=== PATIENT | male | born 1955 | race Caucasian/White ===

== ENCOUNTER → 2018-12-07 11:51 | Outpatient (CLI) | payer BC, SELFPAY ==
[2018-12-07 11:41] VITALS: BMI 28.5
--- NOTE | 2018-12-07 11:53 | RAD_ITS ---
STUDY: X-RAY - LEFT KNEE REASON FOR EXAM: Male, 63 years old. Left knee pain TECHNIQUE: 4 view(s) of the knee. Weight-bearing COMPARISON: None. FINDINGS: Normal visualized distal femur. Normal visualized proximal tibia and fibula. Normal proximal tibiofibular articulation. There is mild degenerative arthrosis of the medial femorotibial compartment. There is mild degenerative arthrosis of the lateral femorotibial compartment. There is mild degenerative arthrosis of the patellofemoral articulation. There is no demonstrated joint effusion. Mild medial compartment joint space narrowing. The soft tissue structures are unremarkable. RAD/Knee 4 or More Views IMPRESSION: Mild degenerative changes Electronically Signed: Jamil Peña DO at 12:39 EST Tel , Service support ,
== END ==
PROVIDERS: Family Provider Family Medicine; PCP Family Medicine; Referring Provider Physician Assistant; Visit Provider Physician Assistant
DX: M25.562 Pain in left knee (principal)
CPT/HCPCS: 73564

== ENCOUNTER → 2019-03-02 13:36 | Outpatient (CLI) | payer SELFPAY ==
[2018-12-07 11:41] VITALS: BMI 28.5
--- NOTE | 2019-03-02 13:42 | CT_ITS ---
STUDY: CT CHEST WITHOUT CONTRAST REASON FOR EXAM: Male, 63 years old. Hyperlipidemia. RADIATION DOSAGE (If Supplied By Facility): CTDIvol = ( 12.19 ) mGy, DLP = ( 195.04 ) mGycm TECHNIQUE: Transaxial imaging was performed without the administration of intravenous contrast material. Individualized dose optimization techniques were used for this CT. COMPARISON: None. FINDINGS: There are a few small calcified granulomata in the right midlung. The lungs are otherwise clear. There is no demonstrated pleural abnormality. Normal heart size. Minor fluid or thickening of the right inferolateral pericardium. There are calcifications of the coronary arteries. Normal mediastinum. There is at least one calcified right hilar lymph node. Normal unenhanced pulmonary arteries. Normal visualized thoracic aorta. There are multi-level degenerative changes of the thoracic spine. There is diffuse decreased attenuation of the hepatic parenchyma, consistent with fatty infiltration. Moderately defined 1.8 cm subcapsular low-density in the anterolateral liver on series 3 image 63 is likely a cyst or hemangioma. CT/Limited Chest CT w/CCTA IMPRESSION: 1. Findings of old right calcified granulomatous disease. 2. Atherosclerotic calcifications of the coronary arteries. 3. Minor fluid or thickening in the right inferolateral pericardium. The heart size is normal. 4. Fatty infiltration of the liver. 1.8 cm subcapsular bubble cyst or hemangioma seen in the anterolateral liver. This could be further characterized with ultrasound, IV contrast enhanced CT, or MRI. Electronically Signed: Christ Lieberman MD at 16:53 EDT , Service support ,
[2019-03-02 13:58] VITALS: BP 138/84; PULSE 74; RESP 16; O2SAT 94; BMI 29.5
--- NOTE | 2019-03-04 16:13 | CA.SCORE ---
Calcium Scoring Date of Study:: 03/04/19 Coronary Calcium Scoring: High-resolution Computed Tomographic imaging of the chest was performed on [03/02/2019], with particular attention paid to the coronary arteries. Images from the examination were analyzed for the presence and extent of coronary artery calcification , using coronary calcium quantification software. The patient tolerated the procedure well and there were no complications. The results of the coronary calcification analysis are provided below. - Findings Left Main (LM): 28.8 Left Anterior Descending (LAD): 0 Left Circumflex (LCX): 0 Right Coronary Artery (RCA): 0 Total Agatston Score: 28.8 Percentile Rankin - Conclusion Calcium Scoring Interpretation: Calcium Score Interpretation 0 No identifiable atherosclerotic plaque. Very low cardiovascular disease risk. <5% chance of presence coronary artery disease A Negative Examination 1-10 Minimal Plaque burden. Significant coronary artery disease very unlikely. 11-100 Mild plaque burden. Likely mild or minimal coronary atherosclerosis. 101-400 Moderate plaque burden Moderate non-obstructive coronary artery disease highly likely. Over 400 Extensive plaque burden. High likelihood of at least one significant coronary stenosis (>50% diameter) The total calcium score (28.8 (is below the 25th percentile for men between the ages of 65 and 69 (exact percentile calculated to be 18%; this means 17% of the population has a lower calcium score and 82% of the population has a higher calcium score than this patient.) However, the patient's calcification is isolated into his left main coronary artery which may have coronary ischemia implications depending upon severity and concomitant coronary atherosclerosis should any be present. Evaluation of specific coronary atherosclerosis is beyond the scope of this test. A full evaluation of cardiac risk should include an assessment of all conventional risk factors, and the scores and percentile rankings reported herein should be evaluated in this context.
== END ==
PROVIDERS: Family Provider Family Medicine; PCP Family Medicine; Referring Provider Internal Medicine; Visit Provider Internal Medicine
DX: E78.5 Hyperlipidemia, unspecified (principal)
CPT/HCPCS: 75571; 76380

== ENCOUNTER 2021-01-02 15:01 | Outpatient (RCR) | payer MEDICARE, SELFPAY ==
[2019-03-02 13:58] VITALS: BMI 29.5
[2021-01-02] MEDS: COVID-19 VACC, MRNA(PFIZER)/PF 30 MCG/0.3 ML SYRINGE IM (13:59)
[2021-01-23] MEDS: COVID-19 VACC, MRNA(PFIZER)/PF 30 MCG/0.3 ML SYRINGE IM (18:32)
== END 2021-04-03 23:59 ==
LOC: IMMUN 15:01
PROVIDERS: PCP Family Medicine; Visit Provider Family Medicine
DX: Z23 Encounter for immunization (principal)
CPT/HCPCS: 0001A; 0002A; 91300

== ENCOUNTER → 2022-11-18 | Outpatient (CLI) | payer MEDICARE, SELFPAY ==
--- NOTE | 2022-11-18 15:43 | RAD_ITS ---
INDICATION: Other intervertebral disc degeneration, lumbosacral region EXAMINATION/TECHNIQUE: X-RAY - XR Spine Lumbar Comp W/ Bending Min 6 Views COMPARISON: None. FINDINGS: VERTEBRAE: Preserved vertebral body height. Chronic fracture deformity of T12 status post vertebral augmentation. No acute fracture. Grade 1 retrolisthesis L2 on L3. Preservation of the normal lumbar lordosis. Severe multilevel facet arthropathy. DISCS: Severe multilevel degenerative disc disease and spondylosis. INCLUDED ABDOMEN: Included bowel gas pattern is non-obstructive. RAD/L/S Spine w Bend Min 6 Vw IMPRESSION: No acute abnormalities. Chronic fracture deformity of T12 status post vertebral augmentation. Grade 1 retrolisthesis L2 on L3. Severe multilevel degenerative disc disease and spondylosis. Electronically Signed: Rodger Morris MD at 18:50 EST ,
== END | disposition home or self-care (01) ==
PROVIDERS: PCP Family Medicine; Referring Provider Anesthesiology Pain Medicine; Visit Provider Anesthesiology Pain Medicine
DX: M47.816 Spondylosis without myelopathy or radiculopathy, lumbar region (principal); S22.089A Unspecified fracture of T11-T12 vertebra, initial encounter for closed fracture; M51.26 Other intervertebral disc displacement, lumbar region; M51.37 Other intervertebral disc degeneration, lumbosacral region; M51.36 Other intervertebral disc degeneration, lumbar region
CPT/HCPCS: 72114

== ENCOUNTER 2025-03-04 08:30 | Outpatient (RCR) | payer MEDICARE, SELFPAY ==
--- NOTE | 2025-02-04 14:52 | HP.PTEVAL ---
Patient's Visit Information Visit Information Visit Information: PRANAV GAMBOA is a 69 year old M referred to Physical Therapy by PAMELA Casarez with a diagnosis of L hip OA, LBP. Date of Evaluation: 02/04/25 Physical Therapist: Juan Alberto Diaz, DPT, OCS, CSCS Visit Plan Frequency: 2x /Week Duration: 2-4 Weeks Plan: 2x/week for 3-4 weeks for IE HEP: supine lie flat 5 min 2x/day, stand up tall upon arising from chair, keep hips and knees moving when sitting long durations. Please teach hip and core strength to HEP, HS adn quad/psoas stretching to HEP, may roll these out also, LB ROM and strength to HEP Main goal is to get on HEP for these things so he can be I and get ready for surgery if necessary. Leg pull and belt mobs L hip as needed. Subjective Subjective: I got two bad hips. They need fixed. Will see Amalia 03/09 to go over JAIME L options. L more painful than R. Have been painful for years. It has gotten to the point where he needs something to be done. Has OA in back and knees are getting stiff. L hip pains up to 7/10 at times and feels like it might give out. Pain is lateral. R hip is up to 3/10 tightness. Using ice and management. Actiivties are hard to walk real far b4 hips and back hurts. 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 Sleep is not a problem. Basic ADLS all I and fights through it. Has to sit to take pants off as L leg will give. Pain L hip: Pain Intensity (Out of 10): 3 Pain Intensity Range: 0 and 7 R hip: Pain Intensity (Out of 10): 3 Pain Intensity Range: 0 and 3 Objective Objective: Walks slow and with short steps slightly hunched [place] but I in gait and no antalgia. Slow to push out of chair but I without UE. Steps reciprocal with pain L lateral hip but no rail needed. reflexes patella and achilles 2/3 B. Sensation LE WNL to gross lgiht touch. B strength is 4- in B hips and 4 in B knees and ankles. Stiff ness is obvious in knees and hips with PROM. ROM hips B IR 2 and pain, er 40 and painful, flexion 105 and painful with stiff end feel. Extension to 0. Max tightness in HS at -50 90/90 tst B. Psoas max tight at 0 extension. Much more comfortable supine lie with knees bent. Lumbar aROM ext nil and painful, flexion is good, SB give pressure in LB - slump, - SLR + B FADDIR Balance/Special Test Scores Lower Extremity Functional Score: 18 Goals Goal 1:: I appropriate HEP for back ROM, HS and psoas stretech and hip adn core strength to get reasdy for possible surgery. Goal Time Frame: 4-6 Weeks Goal 2:: Hip pain L side 2/10 at worst and 50% better Goal Time Frame: 4-6 Weeks Goal 3:: LEFS score 40 Goal Time Frame: 4-6 Weeks Rehabilitation Potential Physical Therapy Diagnosis: hip stiffness and weakness and degeneration leading to pain with funciton. Rehabilitation Potential: Fair Anticipated Interventions Patient/Client Instruction: Educate patient on: Condition For the Purpose of:: To decrease pain, To increase ROM, To improve nutrient delivery to tissue and To improve muscle performance and motor function Therapeutic Exercise to Include: Strength training, Flexibilty training, Passive ROM and Active ROM For the Purpose of:: To decrease pain, To increase ROM, To improve nutrient delivery to tissue and To improve muscle performance and motor function Manual Therapy Techniques to Include: Mobilization, Passive ROM and Soft tissue mobilization For the Purpose of:: To decrease pain, To increase ROM, To improve nutrient delivery to tissue, To improve muscle performance and motor function, To increase tolerance to activity/condition/position and To improve gait and locomotor functions Text: Thank you for the opportunity to evaluate your patient. For Medicare and Medicare HMO plans, please review the plan of care and approve it. It will need to be FAXED BACK to us at [phone] for Medicare purposes. For Medicare only, by signing this I certify the plan of care. Please let me know if there are questions or concerns regarding this plan of care. Physician Signature: Date:
--- NOTE | 2025-03-04 09:14 | HP.PTDCSUM ---
Discharge Summary D/C summary: It has been my pleasure to treat PRANAV GAMBOA referred by PAMELA Casarez, with the diagnosis of L hip OA, LBP for a total of 9 visit(s). Discharge Date: 03/04/25 Please see the following information for a summary of their discharge status. Subjective Subjective: Getting better. Feels stronger with exercises with less pain. Activity at home is about the same, LB hurts if does too much at home. Feels tight in hip more than pain L hip Sleep is fine. HEP: can do at home. No pain over 1-2 lately. Still thinking he wants something done about L hip pain and tightness. Pain L hip: Pain Intensity (Out of 10): Unrated R hip: Pain Intensity (Out of 10): 1 Overall Improvement % Improvement: 50 Objective Objective/Function: 100 ROM B hip flexion very tight, 45 er adn 4 IR L and 5 R with tightness. Walks stiff and small steps without much movement to spine or hips trying to minimize movement to keep them stable L >R. Goals Goal 1:: I appropriate HEP for back ROM, HS and psoas stretech and hip adn core strength to get reasdy for possible surgery. Goal Progress: Goal Met Goal 2:: Hip pain L side 2/10 at worst and 50% better Goal Progress: Goal Met Goal 3:: LEFS score 40 Goal Progress: Progressing Plan Plan: d/c to HEP, pt to doctor next week for options. D/C Information Discharge Comments: Pt to continue HEP and f/u with doctor next week for options. d/c sentence: If there are questions or concerns regarding this patient's physical therapy, please feel free to call me at [phone]. Thank you for the referral of this patient. Sincerely, Juan Alberto Diaz, DPT, OCS, CSCS Balance/Gait/Functional tests Balance/Special Test Scores Lower Extremity Functional Score: 39 Improvement % Improvement: 50
== END 2025-03-04 19:00 | disposition home or self-care (01) ==
LOC: PT 08:30
PROVIDERS: PCP Family Medicine
DX: M16.12 Unilateral primary osteoarthritis, left hip (principal); M25.552 Pain in left hip; M54.50 Low back pain, unspecified
CPT/HCPCS: 97110; 97161; 97164

== ENCOUNTER 2025-07-19 12:30 | Outpatient (RCR) | payer MEDICARE, SELFPAY ==
--- NOTE | 2025-07-06 09:33 | HP.PTEVAL_ITS ---
Patient's Visit Information Visit Information Visit Information: PRANAV GAMBOA is a 69 year old M referred to Physical Therapy by Dr. Bj Holland MD with a diagnosis of Left hip osteoarthritis. Date of Evaluation: 07/06/25 Physical Therapist: Jesse Taylor PT, Cert MDT, OCS Visit Plan Frequency: 2-3x /Week Duration: 4-6 Weeks Plan: Plan to have Left JAIME in Sep 2025 PT INTERVENTIONS HEP ROM ,STRENGTHENING RIGHT HIP ( GLUT MEDIUS) ,CORE STRENGTHENING AND FUNCTIONAL STRENGTHENING Subjective Subjective: This 69 y/o male presents to physical therapy for left hip pain. Patient plans to have Left JAIME in Sep. Patient pain left LB . Seen DR recommended PT . Aggravating factor walking/standing ,kneeling squatting. Symptoms described as ache . Hips are more tight. Alleviating factors rest.X- rays showed hip 2 months. Denies paresthesia/tingling. No medication.no Sleeping good. Patient condition affects QOL and function/work. SOCAIL: VOCATION: Grain Pain Left Back: Pain Intensity (Out of 10): 1 Pain Intensity Range: 8 Objective Objective: POSTURE: mild forward posture GAIT: reciprocal pattern mild forward posture SYMMTRIES: align NEURO: denies paresthesia/tingling PALPATION: unremarkable AROM: hip flexion 105 degrees ,abduction 40 degrees PROM: Hip IR 0 degrees MMT: quads/hams 4/5 ,( peak force ) hip flexion 23.1 ,hip abduction 8.9 STAIRS: one step at time with rail Special Tests L/S Slump test left side: Negative L/S Slump test right side: Negative L/S Left Straight Leg Raise: Negative L/S Right Straight Leg Raise: Negative L Hip Scour: Negative Balance/Special Test Scores Lower Extremity Functional Score: 38 Goals Goal 1:: Patient to be I with HEP for hip for Pre Rehab Goal Time Frame: 4-6 Weeks Goal 2:: Patient to improve ROM of hip by 5 degrees or > to improve gait and stairs Goal Time Frame: 4-6 Weeks Goal 3:: Patient to improve peak force hip by 5-10# to improve function Goal Time Frame: 4-6 Weeks Goal 4:: Patient to improve LFES score by 5 -10 points to improve QOL and function Goal Time Frame: 4-6 Weeks Rehabilitation Potential Physical Therapy Diagnosis: This patient has left DJD and plans to undergo s/p JAIME in Sep with decrease ROM ,weakness ,and pain thus benefit from skilled PT Rehabilitation Potential: Good Anticipated Interventions Patient/Client Instruction: Educate patient on: Condition and Plan of Care For the Purpose of:: To decrease pain, To increase ROM, To improve muscle performance and motor function, To improve ability to perform ADL's, To increase tolerance to activity/condition/position, To improve ability of physical actions for home/community/work/leisure, To improve health of tissue, To decrease soft tissue restriction, To increase flexibility/ROM, To improve safety with gait and To improve tolerance to ADL's Therapeutic Exercise to Include: Strength training, Endurance training, Balance training, Postural training, Flexibilty training, Passive ROM, Active ROM and Dynamic Lumbar Stabilization Comment: HIP For the Purpose of:: To decrease pain, To increase ROM, To improve muscle performance and motor function, To increase tolerance to activity/condition/position, To improve performance and independence with ADL's, To improve ability of physical actions for home/community/work/leisure, To improve health of tissue, To decrease soft tissue restriction, To increase flexibility/ROM and To improve tolerance to ADL's Text: Thank you for the opportunity to evaluate your patient. For Medicare and Medicare HMO plans, please review the plan of care and approve it. It will need to be FAXED BACK to us at [phone] for Medicare purposes. For Medicare only, by signing this I certify the plan of care. Please let me know if there are questions or concerns regarding this plan of care. Physician Signature: Date:
--- NOTE | 2025-07-19 12:56 | HP.PTDCSUM ---
Discharge Summary D/C summary: It has been my pleasure to treat PRANAV GAMBOA referred by Dr. Bj Holland MD, with the diagnosis of Left hip osteoarthritis for a total of 3 visit(s). Discharge Date: 07/19/25 Please see the following information for a summary of their discharge status. Subjective Subjective: Doing okay sore from last session Pain Left Back: Pain Intensity (Out of 10): 0 Overall Improvement % Improvement: 50 Objective Objective/Function: POSTURE: mild forward posture GAIT: reciprocal pattern mild forward posture SYMMTRIES: align NEURO: denies paresthesia/tingling PALPATION: unremarkable AROM: hip flexion 105 degrees ,abduction 40 degrees PROM: Hip IR 5 degrees MMT: quads/hams 4/5 ,( peak force ) hip flexion 26.2 ,hip abduction 17.9 STAIRS: alternating with rail Goals Goal 1:: Patient to be I with HEP for hip for Pre Rehab Goal Progress: Goal Met Goal 2:: Patient to improve ROM of hip by 5 degrees or > to improve gait and stairs Goal Progress: Goal Met Goal 3:: Patient to improve peak force hip by 5-10# to improve function Goal Progress: Progressing Goal 4:: Patient to improve LFES score by 5 -10 points to improve QOL and function Goal Progress: Progressing Plan Plan: D/C D/C Information Discharge Comments: HEP d/c sentence: If there are questions or concerns regarding this patient's physical therapy, please feel free to call me at [phone]. Thank you for the referral of this patient. Sincerely, Jesse Taylor, PT, Cert MDT, OCS Balance/Gait/Functional tests Balance/Special Test Scores Lower Extremity Functional Score: 61 Improvement % Improvement: 50
== END 2025-07-19 19:00 | disposition home or self-care (01) ==
LOC: PT 12:30
PROVIDERS: PCP Family Medicine; Referring Provider Specialist; Visit Provider Specialist
DX: M16.12 Unilateral primary osteoarthritis, left hip (principal)
CPT/HCPCS: 97110; 97162